=== PATIENT | male | born 1995 | race Caucasian/White ===

== ENCOUNTER 2021-04-26 21:46 | Emergency (ER) | payer OTHER ==
--- NOTE | 2021-04-26 22:48 | NUR ---
CALLED FOR TRIAGE NOT IN WAITING ROOM
--- NOTE | 2021-04-26 23:09 | NUR ---
LEFT WITHOUT BEING SEEN
== END 2021-04-26 23:11 | disposition left against medical advice (07) ==
LOC: ER 21:57
DX: Z53.21 Procedure and treatment not carried out due to patient leaving prior to being seen by health care provider (principal)